=== PATIENT | female | born 1970 | race Native Hawaiian/Other Pacific Islander ===

== ENCOUNTER 2022-08-05 13:54 | Outpatient (CLI) | payer OTHER | END 2022-08-05 19:21 | disposition home or self-care (01) | LOC: CT 13:54 | PROVIDERS: ATTEND Family Medicine | DX: Z13.6 Encounter for screening for cardiovascular disorders (principal) ==

== ENCOUNTER 2022-08-05 14:02 | Outpatient (CLI) | payer OTHER | END 2022-08-05 19:22 | disposition home or self-care (01) | LOC: RESP 14:02 | PROVIDERS: ATTEND Family Medicine | DX: R00.2 Palpitations (principal) ==

== ENCOUNTER 2022-08-06 07:54 | Outpatient (CLI) | payer OTHER ==
[~2022-08-06] VITALS: Ht 165.1 cm; Wt 93.0 kg
== END 2022-08-06 19:22 | disposition home or self-care (01) ==
LOC: NM 07:54
PROVIDERS: ATTEND Family Medicine
DX: R00.2 Palpitations (principal)
CPT/HCPCS: A9500; J2785